=== PATIENT | male | born 1945 ===

== ENCOUNTER 2023-07-01 07:17 | Day surgery (SDC) | payer OTHER ==
[~2023-07-01] VITALS: Ht 175.3 cm; Wt 76.2 kg
[2023-07-01] MEDS ORDERED: fentaNYL citrate 0.05 MG/ML VIAL ONE (08:11)
[2023-07-01] MEDS ORDERED: MIDAZOLAM 2 MG/2 ML VIAL ONE (08:12)
[2023-07-01] MEDS ORDERED: MIDAZOLAM 2 MG/2 ML VIAL IVP ONE (11:15)
== END 2023-07-01 09:40 | disposition home or self-care (01) ==
LOC: MDS 07:17 → MMU 07:18 → MDS 09:39
PROVIDERS: ATTEND Internal Medicine Gastroenterology
DX: D50.9 Iron deficiency anemia, unspecified (principal); K44.9 Diaphragmatic hernia without obstruction or gangrene
CPT/HCPCS: 36415; 43239; 86677; J2250; J3010